=== PATIENT | female | born 1985 | race Caucasian/White ===

== ENCOUNTER 2022-01-06 16:06 | Outpatient (CLI) | payer OTHER, SELFPAY | END 2022-01-06 16:07 | disposition home or self-care (01) | LOC: ANHGOSHLAB 16:08 | PROVIDERS: PCP Internal Medicine; Visit Provider Clinical Nurse Specialist | DX: R19.7 Diarrhea, unspecified (principal); Z13.29 Encounter for screening for other suspected endocrine disorder; Z53.8 Procedure and treatment not carried out for other reasons | CPT/HCPCS: 99199; 36415 ==

== ENCOUNTER → 2023-03-17 12:06 | Outpatient (CLI) | payer OTHER, SELFPAY ==
--- NOTE | ~2023-03-17 | XR_ITS ---
XR ankle LT min 3V 03/17/2023 12:26 INDICATION: Left ankle pain PROCEDURE: 4 views left ankle COMPARISON: No prior studies for comparison. FINDINGS: Fracture, dislocation or subluxation is not identified. The soft tissues appear within norm al limits. No foreign bodies are identified. There is an old healed calcaneal fracture. IMPRESSION: 1: NO ACUTE BONE OR JOINT ABNORMALITY IDENTIFIED. Reviewed, dictated and finalized at location L. [employer]
== END ==
PROVIDERS: PCP Clinical Nurse Specialist; Visit Provider Clinical Nurse Specialist
DX: M25.572 Pain in left ankle and joints of left foot (principal)
CPT/HCPCS: 73610